=== PATIENT | female | born 1935 | race Caucasian/White ===

== ENCOUNTER 2017-06-19 10:23 | Outpatient (RCR) | payer MEDICARE ==
[~2017-06-19 10:23] MED LIST: ACET-789 PO; Amlodipine Besylate PO; BETH25TA PO; BETH50TA9 PO; CIPR500T78 PO; CODE-54 PO; DCS100C PO; IBUP800T26 PO; LSNP20T PO; LVT.05T PO; NITR-65 PO; POLY17PO23 GT
== END 2017-07-28 | disposition home or self-care (01) ==
LOC: CARD 10:23
PROVIDERS: ATTEND Physician Assistant
DX: E78.2 Mixed hyperlipidemia; R07.89 Other chest pain; I51.7 Cardiomegaly; I11.0 Hypertensive heart disease with heart failure
CPT/HCPCS: 93225; 93226

== ENCOUNTER → 2019-01-30 | Outpatient (CLI) | payer MEDICARE ==
[~2019-01-30] MED LIST changes: +CATHETER FLUSH 10 ML SYR IV PRN; +HOLD METFORMIN - RECEIVED CONTRAST 20 ML VIAL IV SCH; +IOHEXOL 350 MG/ML 100 ML (OMNIPAQUE 350) VIAL IV ONE
[2019-01-30 11:00] LABS: CREATININE SERUM 0.89 MG/DL (0.60-1.30)
== END ==
LOC: CARD 09:53
PROVIDERS: ATTEND Internal Medicine Cardiovascular Disease
DX: I65.23 Occlusion and stenosis of bilateral carotid arteries (principal); R07.89 Other chest pain; I11.9 Hypertensive heart disease without heart failure; I51.7 Cardiomegaly; E78.2 Mixed hyperlipidemia; I08.0 Rheumatic disorders of both mitral and aortic valves
CPT/HCPCS: 36415; 82565; 84520; 93306

== ENCOUNTER → 2020-05-13 | Outpatient (CLI) | payer MEDICARE ==
[~2020-05-13] MED LIST changes: -CATHETER FLUSH 10 ML SYR IV PRN; -HOLD METFORMIN - RECEIVED CONTRAST 20 ML VIAL IV SCH; -IOHEXOL 350 MG/ML 100 ML (OMNIPAQUE 350) VIAL IV ONE
--- NOTE | 2020-05-13 13:15 | Diagnostic Imaging Report ---
INDICATION: Fall. Trauma. COMPARISON: Multiple radiographic views of the orbits were obtained. FINDINGS: No healing or displaced osseous abnormalities are seen. No unexpected radiopaque foreign bodies are identified. Paranasal sinuses are clear. Note is made of calcified carotid atherosclerosis. IMPRESSION: 1. No acute abnormality of the orbits. Dictated by: Dictated on workstation # [id number]
== END ==
LOC: RAD 12:15
PROVIDERS: ATTEND Nurse Practitioner Family
DX: S01.91XA Laceration without foreign body of unspecified part of head, initial encounter (principal); W19.XXXA Unspecified fall, initial encounter
CPT/HCPCS: 70200

== ENCOUNTER → 2021-02-22 | Outpatient (CLI) | payer MEDICARE ==
[2021-02-22 15:30] LABS: HEMATOCRIT 33 % (35-52); HEMOGLOBIN 10.8 G/DL (11.5-16.0); MEAN CORPUSCULAR HEMOGLOBIN 31 PG (25-34); MEAN CORPUSCULAR HGB CONC 23 G/DL (32-36); MEAN CORPUSCULAR VOLUME 3 FL (80-99); MEAN PLATELET VOLUME 8.7 FL (7.4-10.4); PLATELET COUNT 297 10^3/uL (130-400); WHITE BLOOD COUNT 6.8 10^3/uL (4.3-11.0)
[2021-02-22 15:31] LABS: BASOPHILS # (AUTO) 0.1 10^3/uL (0.0-0.1); EOSINOPHILS # (AUTO) 0.3 10^3/uL (0.0-0.3); LYMPHOCYTES # (AUTO) 1.6 X 10^3 (1.0-4.0); MONOCYTES # (AUTO) 0.6 X 10^3 (0.0-1.0); NEUTROPHILS # (AUTO) 4.2 X 10^3 (1.8-7.8); NEUTROPHILS % (AUTO) 62 % (42-75)
[2021-02-22 15:32] LABS: BASOPHILS % (AUTO) 1 % (0-10); EOSINOPHILS % (AUTO) 4 % (0-10); LYMPHOCYTES % (AUTO) 23 % (12-44); MONOCYTES % (AUTO) 9 % (0-12)
[2021-02-22 15:42] LABS: CREATININE SERUM 0.92 MG/DL (0.60-1.30); POTASSIUM 4.3 MMOL/L (3.6-5.0)
[2021-02-22 15:43] LABS: ALBUMIN 3.8 GM/DL (3.2-4.5); BILIRUBIN,TOTAL 0.7 MG/DL (0.1-1.0); CALCIUM 9.3 MG/DL (8.5-10.1); TOTAL PROTEIN 7.3 GM/DL (6.4-8.2)
[2021-02-22 16:00] LABS: ERYTHROCYTE SEDIMENTATION RATE 60 MM/HR (0-30)
== END ==
LOC: LAB 14:59
PROVIDERS: ATTEND Surgery
DX: I87.332 Chronic venous hypertension (idiopathic) with ulcer and inflammation of left lower extremity (principal); I89.0 Lymphedema, not elsewhere classified; L97.222 Non-pressure chronic ulcer of left calf with fat layer exposed; L03.116 Cellulitis of left lower limb; I70.242 Atherosclerosis of native arteries of left leg with ulceration of calf
CPT/HCPCS: 36415; 80053; 85025; 85652; 86141

== ENCOUNTER → 2021-02-22 | Outpatient (CLI) | payer MEDICARE | LOC: WOUNDCARE 13:23 | PROVIDERS: ATTEND Surgery | DX: I87.332 Chronic venous hypertension (idiopathic) with ulcer and inflammation of left lower extremity (principal); I89.0 Lymphedema, not elsewhere classified; L97.222 Non-pressure chronic ulcer of left calf with fat layer exposed; L03.116 Cellulitis of left lower limb | CPT/HCPCS: A6197; G0463; 99213 ==

== ENCOUNTER → 2021-03-02 | Outpatient (CLI) | payer MEDICARE | LOC: WOUNDCARE 10:46 | PROVIDERS: ATTEND Surgery | DX: I96 Gangrene, not elsewhere classified (principal); L97.222 Non-pressure chronic ulcer of left calf with fat layer exposed; I87.332 Chronic venous hypertension (idiopathic) with ulcer and inflammation of left lower extremity; I89.0 Lymphedema, not elsewhere classified; L03.116 Cellulitis of left lower limb | CPT/HCPCS: 11042; G0463 ==

== ENCOUNTER → 2021-03-17 | Outpatient (CLI) | payer MEDICARE | LOC: WOUNDCARE 09:58 | PROVIDERS: ATTEND Surgery | DX: I87.332 Chronic venous hypertension (idiopathic) with ulcer and inflammation of left lower extremity (principal); I96 Gangrene, not elsewhere classified; I89.0 Lymphedema, not elsewhere classified; L97.222 Non-pressure chronic ulcer of left calf with fat layer exposed; L03.116 Cellulitis of left lower limb | CPT/HCPCS: 99213 ==

== ENCOUNTER → 2021-03-24 | Outpatient (CLI) | payer MEDICARE | LOC: WOUNDCARE 10:32 | PROVIDERS: ATTEND Surgery | DX: I87.332 Chronic venous hypertension (idiopathic) with ulcer and inflammation of left lower extremity (principal); I89.0 Lymphedema, not elsewhere classified; L97.222 Non-pressure chronic ulcer of left calf with fat layer exposed; L03.116 Cellulitis of left lower limb | CPT/HCPCS: 99212 ==

== ENCOUNTER 2021-04-19 09:36 | Outpatient (RCR) | payer MEDICARE | END 2021-05-02 13:19 | disposition home or self-care (01) | PROVIDERS: ATTEND Surgery | DX: I89.0 Lymphedema, not elsewhere classified (principal) ==

== ENCOUNTER → 2022-01-05 | Outpatient (CLI) | payer MEDICARE ==
--- NOTE | 2022-01-05 12:59 | Diagnostic Imaging Report ---
INDICATION: Left third toe pain. Open wound. FINDINGS: Three views. There is generalized osteoporosis. Moderate arthritic changes noted throughout the interphalangeal joints and MP joints. There is a contracture deformity of the toes. No definite destructive bony changes are seen. 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 No destructive bony changes are seen to suggest osteomyelitis at this time. Dictated by: Dictated on workstation # [id number]
--- NOTE | 2022-01-05 12:59 | Diagnostic Imaging Report ---
INDICATION: Shortness of breath. PA and lateral chest obtained at 12:44 p.m. and compared to 03/23/2014. FINDINGS: Heart is mildly enlarged. Aorta is markedly tortuous. There is a questionable hiatal hernia. There is no pneumothorax or pleural fluid or focal infiltrate. IMPRESSION: Mild cardiomegaly with tortuous aorta. Question hiatal hernia. No focal infiltrate or pleural fluid. Dictated by: Dictated on workstation # [id number]
== END ==
LOC: RAD 12:26
PROVIDERS: ATTEND Nurse Practitioner Family
DX: S91.109A Unspecified open wound of unspecified toe(s) without damage to nail, initial encounter (principal); M19.072 Primary osteoarthritis, left ankle and foot; Q25.46 Tortuous aortic arch; I51.7 Cardiomegaly
CPT/HCPCS: 71046; 73630

== ENCOUNTER → 2022-01-12 | Outpatient (CLI) | payer MEDICARE ==
--- NOTE | 2022-01-12 13:28 | Diagnostic Imaging Report ---
PROCEDURE: US Bilateral lower extremity arterial. TECHNIQUE: Multiple real-time grayscale images are obtained through both lower extremity arterial systems with color Doppler imaging and color Doppler spectral analysis. INDICATION: EXAMINATION: US Lower Extremity Arterial Duplex Bilateral. TECHNIQUE: Multiple real-time grayscale images were obtained over both lower extremities in various projections. Additional duplex Doppler and color Doppler images were also obtained. HISTORY: Lower extremity wound COMPARISON: None available. FINDINGS: Right lower extremity: A multiphasic waveform is seen throughout the right lower extremity arterial system with the exception of the right distal posterior tibial artery which was not able to be identified. Left lower extremity: There is focal velocity elevation in the left distal posterior tibial artery with a monophasic waveform distally. Incidental note is made of thrombosed varicose superficial vein in the left popliteal fossa. IMPRESSION: 1. 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 2. Right distal posterior tibial artery could not be identified and may be chronically occluded. There is multiphasic flow in the right dorsalis pedis artery. 3. Incidental note of thrombosed varicose superficial vein in the left popliteal fossa. Dictated by: Dictated on workstation # [id number]
== END ==
LOC: CARD 11:30
PROVIDERS: ATTEND Nurse Practitioner Family
DX: I70.202 Unspecified atherosclerosis of native arteries of extremities, left leg (principal); I82.812 Embolism and thrombosis of superficial veins of left lower extremity
CPT/HCPCS: 93306; 93925